=== PATIENT | female | born 1935 | race African-American/Black ===

== ENCOUNTER 2021-02-05 10:01 | Inpatient (IN) | payer OTHER ==
[~2021-02-05] VITALS: Ht 152.4 cm; Wt 56.2 kg
[2021-02-05 11:01] LABS: HEMATOCRIT. 35.8 % (36.0-48.0); HEMOGLOBIN. 11.4 g/dL (12.0-16.0); MEAN CORPUSCULAR HEMOGLOBIN 29.5 pg (28.0-32.0); MEAN CORPUSCULAR VOLUME 92.7 fL (81.0-99.0); MEAN PLATELET VOLUME 8.2 fl (7.4-10.4); PLATELET 160 x1000/uL (130-400); RED BLOOD CELL COUNT 3.86 mill/uL (4.2-5.4); RED CELL DISTRIBUTION WIDTH 15.1 % (11.6-14.6)
[2021-02-05 11:08] LABS: CHLORIDE 100 mEq/L (98-107)
[2021-02-05 11:12] LABS: INR 1.1; PROTHROMBIN TIME 11.3 sec (9.6-11.0)
[2021-02-05 11:57] LABS: PLATELET ESTIMATE NORMAL
[2021-02-05] MEDS ORDERED: ACETAMINOPHEN 325MG TABLET PO PRN (14:15)
[2021-02-05] MEDS ORDERED: ACETAMINOPHEN 650MG SUPP PR PRN (14:15)
[2021-02-05] MEDS ORDERED: MAGNESIUM/ALUMINUM HYDROXIDE/SIMETHICONE 30ML UDC PO PRN (14:15)
[2021-02-05] MEDS ORDERED: GUAIFENESIN 200MG/10ML SUGAR FREE UDC PO PRN (14:15)
[2021-02-05] MEDS ORDERED: LORAZEPAM 0.5MG TABLET PO PRN (14:15)
[2021-02-05] MEDS ORDERED: SODIUM CHLORIDE 0.9% 1,000 ML IV SCH (14:15)
[2021-02-05] MEDS ORDERED: DOCUSATE SODIUM 100MG CAPSULE PO PRN (14:15)
[2021-02-05] MEDS ORDERED: CEFTRIAXONE 1 G PREMIX 50 ML IV SCH (14:15)
[2021-02-05] MEDS ORDERED: DIPHENHYDRAMINE 50MG/ML VIAL IV PRN (14:15)
[2021-02-05] MEDS ORDERED: IPRATROPIUM/ALBUTEROL 0.5-3(2.5)MG/3ML NEB NEB PRN (14:15)
[2021-02-05] MEDS ORDERED: HYDROCODONE/ACETAMINOPHEN 5/325MG TABLET PO PRN (14:15)
[2021-02-05] MEDS ORDERED: NA PHOS,M-B/NA PHOS,DI-BA ENEMA 118ML PR PRN (14:15)
[2021-02-05] MEDS ORDERED: ONDANSETRON HCL 4MG/2ML INJ IV PRN (14:15)
[2021-02-05] MEDS ORDERED: HYDRALAZINE 20MG/ML VIAL IV NR (14:30)
[2021-02-05] MEDS: AMLODIPINE 5MG TABLET PO SCH (14:48)
[2021-02-05 16:31] LABS: LDL CHOLESTEROL 83 mg/dL (5-100)
[2021-02-05 16:32] LABS: HDL CHOLESTEROL 68 mg/dL (40-59)
[2021-02-05 22:07] VITALS: BP 125/71
[2021-02-05 22:09] VITALS: BP 125/71
[2021-02-05] MEDS: FAMOTIDINE 20MG TABLET PO SCH (22:20)
[2021-02-05] MEDS ORDERED: CETI-89 MT (22:42)
[2021-02-05] MEDS ORDERED: LIOT5TAB11 MT (22:42)
[2021-02-05] MEDS ORDERED: FERR325T23 MT (22:42)
[2021-02-05] MEDS ORDERED: LABE300T3 MT (22:42)
[2021-02-05] MEDS ORDERED: ATOR-2 MT (22:42)
[2021-02-05] MEDS ORDERED: ASPI-1497 MT (22:42)
[2021-02-05] MEDS ORDERED: THIA100T72 MT (22:42)
[2021-02-05 23:48] VITALS: BP 166/76
[2021-02-06 00:48] LABS: CREATINE KINASE MB FRACTION 2.3 ng/mL (0.5-3.6)
[2021-02-06] MEDS: CLONIDINE 0.1MG TABLET PO PRN ×2 (00:49→23:59)
[2021-02-06 04:10] VITALS: BP_SYST 131; BP_SYST 135; BP_DIAS 71; BP_DIAS 77
[2021-02-06 06:48] LABS: HEMATOCRIT. 33.5 % (36.0-48.0); HEMOGLOBIN. 10.9 g/dL (12.0-16.0); MEAN CORPUSCULAR HEMOGLOBIN 30.1 pg (28.0-32.0); MEAN CORPUSCULAR VOLUME 92.2 fL (81.0-99.0); MEAN PLATELET VOLUME 8.6 fl (7.4-10.4); PLATELET 151 x1000/uL (130-400); RED BLOOD CELL COUNT 3.63 mill/uL (4.2-5.4); RED CELL DISTRIBUTION WIDTH 15.3 % (11.6-14.6)
[2021-02-06 07:52] LABS: CHLORIDE 100 mEq/L (98-107)
[2021-02-06 08:00] VITALS: BP 124/88
[2021-02-06 08:05] VITALS: BP 137/74
[2021-02-06 08:08] LABS: CREATINE KINASE MB FRACTION 2.1 ng/mL (0.5-3.6); HDL CHOLESTEROL 91 mg/dL (40-59); LDL CHOLESTEROL 60 mg/dL (5-100)
[2021-02-06 08:09] LABS: CREATINE KINASE 173 IU/L (26-192); T4 FREE 1.27 ng/dL (0.76-1.46)
[2021-02-06] MEDS: ASPIRIN 81MG EC TABLET PO SCH (08:58)
[2021-02-06] MEDS: AMLODIPINE 5MG TABLET PO SCH ×2 (08:59→09:00)
[2021-02-06 12:20] VITALS: BP 152/74
[2021-02-06 13:01] LABS: PLATELET ESTIMATE NORMAL
[2021-02-06 16:00] VITALS: BP 156/78
[2021-02-06] MEDS ORDERED: CEFTRIAXONE 1,000 MG in DEXTROSE 5% WATER 50 ML IV SCH (16:00)
[2021-02-06 16:53] LABS: HEPATITIS B SURFACE ANTIGEN NEGATIVE
[2021-02-06 17:23] LABS: HEPATITIS A AB IGM NEGATIVE (NEGATIVE)
[2021-02-06] MEDS ORDERED: AMLO5TAB88 PO (17:46)
[2021-02-06 20:00] VITALS: BP 143/80
[2021-02-06] MEDS: FAMOTIDINE 20MG TABLET PO SCH (21:18)
[2021-02-07] VITALS: BP_SYST 143; BP_SYST 163; BP_SYST 165; BP_DIAS 79; BP_DIAS 85; BP_DIAS 89
[2021-02-07 04:00] VITALS: BP 138/79
[2021-02-07 06:10] LABS: HEMATOCRIT. 32.8 % (36.0-48.0); HEMOGLOBIN. 10.7 g/dL (12.0-16.0); MEAN CORPUSCULAR HEMOGLOBIN 30.4 pg (28.0-32.0); MEAN CORPUSCULAR VOLUME 92.9 fL (81.0-99.0); MEAN PLATELET VOLUME 8.6 fl (7.4-10.4); PLATELET 141 x1000/uL (130-400); RED BLOOD CELL COUNT 3.53 mill/uL (4.2-5.4); RED CELL DISTRIBUTION WIDTH 14.9 % (11.6-14.6)
[2021-02-07 08:00] VITALS: BP 170/85
[2021-02-07] MEDS: ASPIRIN 81MG EC TABLET PO SCH (09:03)
[2021-02-07] MEDS: AMLODIPINE 5MG TABLET PO SCH (09:05)
[2021-02-07 10:38] LABS: NUCLEATED RED BLOOD CELLS 1 /100 WBC; PLATELET ESTIMATE NORMAL
[2021-02-07 10:54] VITALS: BP 133/67
[2021-02-07 11:00] VITALS: BP 133/67
== END 2021-02-07 11:50 | disposition home or self-care (01) | DRG 73 ==
LOC: ER 10:01 → EDBD 10:01 → 6WST 11:32 → SUPCPDRO 14:02 → ENRESERV 20:15
PROVIDERS: ADMIT Internal Medicine; ATTEND Internal Medicine
PROC: 5A1D70Z Performance of Urinary Filtration, Intermittent, Less than 6 Hours Per Day (ICD-10-PCS; principal; 2021-02-06)
DX: G90.8 Other disorders of autonomic nervous system (principal); I50.43 Acute on chronic combined systolic (congestive) and diastolic (congestive) heart failure; N18.6 End stage renal disease; I13.2 Hypertensive heart and chronic kidney disease with heart failure and with stage 5 chronic kidney disease, or end stage renal disease; E87.1 Hypo-osmolality and hyponatremia; N03.9 Chronic nephritic syndrome with unspecified morphologic changes; D64.9 Anemia, unspecified; D72.819 Decreased white blood cell count, unspecified; D72.825 Bandemia; I16.0 Hypertensive urgency; E03.9 Hypothyroidism, unspecified; E11.51 Type 2 diabetes mellitus with diabetic peripheral angiopathy without gangrene; E78.5 Hyperlipidemia, unspecified; M10.9 Gout, unspecified; E11.22 Type 2 diabetes mellitus with diabetic chronic kidney disease; Z88.5 Allergy status to narcotic agent; Z87.891 Personal history of nicotine dependence; Z99.2 Dependence on renal dialysis; Z86.79 Personal history of other diseases of the circulatory system
CPT/HCPCS: 36415; 70551; 71045; 76770; 80048; 80053; 80061; 82550; 82553; 83735; 83880; 84145; 84439; 84443; 84484; 85025; 86705; 86709; 86803; 87340; 93005; 93306; 93880; 93970; 97162; 99291; J0360; J0696; J7060

== ENCOUNTER 2022-03-28 09:50 | Inpatient (IN) | payer OTHER ==
[~2022-03-28] VITALS: Ht 165.1 cm; Wt 58.2 kg
[~2022-03-28 09:50] MED LIST: AMLO5TAB88 PO; ASPI-1497 MT; ATOR-2 MT; CETI-89 MT; FERR325T23 MT; LIOT5TAB11 MT; THIA100T72 MT
[2022-03-28] MEDS ORDERED: ALBUTEROL (0.083%) 2.5MG/3ML NEB HHN STA (09:53)
[2022-03-28] MEDS ORDERED: IPRATROPIUM BROMIDE (0.02%) 0.5MG/2.5ML NEB HHN STA (09:53)
[2022-03-28 10:30] LABS: BASOPHILS % 1.1 % (0.0-2.0); EOSINOPHILS % 2.6 % (0.0-5.0); HEMATOCRIT. 37.6 % (36.0-48.0); HEMOGLOBIN. 12.5 g/dL (12.0-16.0); LYMPHOCYTES % 18.5 % (20.0-50.0); MEAN CORPUSCULAR VOLUME 93.4 fL (81.0-99.0); MEAN PLATELET VOLUME 7.2 fl (7.4-10.4); MONOCYTES % 14.5 % (2.0-8.0); NEUTROPHILS % 63.3 % (40.0-76.0); PLATELET 208 x1000/uL (130-400); RED BLOOD CELL COUNT 4.02 mill/uL (4.2-5.4); RED CELL DISTRIBUTION WIDTH 16.8 % (11.6-14.6)
[2022-03-28 10:44] LABS: CHLORIDE 100 mEq/L (98-107)
[2022-03-28] MEDS ORDERED: FUROSEMIDE 40MG/4ML VIAL IVP ONE (11:30)
[2022-03-28 11:45] LABS: BG BASE EXCESS 1.2 mmol/L (-2.0-2.0); BG DEOXYHEMOGLOBIN 2.2 % (0.0-5.0); BG FRACTION INSPIRED OXYGEN 35; BG HCO3 ACT 26.6 mmol/L (22.0-26.0); BG METHEMOGLOBIN 0.3 % (0.0-1.5); BG OXYGEN SATURATION 97.8 % (92.0-98.5); BG OXYHEMOGLOBIN 97.5 % (94.0-97.0); BG PCO2 45.5 mmHg (35.0-45.0); BG PH 7.385 (7.350-7.450); BG PO2 125.6 mmHg (75.0-100.0); BG SAMPLE SITE RIGHT RADIAL; BG TOTAL HEMOGLOBIN 10.9 g/dL (12.0-18.0); BG TOTAL RESPIRATORY RATE 24 b/min; BG VENT MODE MASK - BIPAP
[2022-03-28] MEDS ORDERED: LEVOFLOXACIN 500MG PREMIX 100 ML IV ONE (11:45)
[2022-03-28 15:57] LABS: CLARITY URINE CLOUDY (CLEAR); COLOR URINE YELLOW (YELLOW); KETONES URINE TRACE (NEGATIVE); LEUKOCYTE ESTERASE URINE NEGATIVE (NEGATIVE); NITRITE URINE NEGATIVE (NEGATIVE); OCCULT BLOOD URINE TRACE (NEGATIVE); PH URINE 7.5 (4.5-8.0); PROTEIN URINE 4+ (NEGATIVE); SPECIFIC GRAVITY URINE 1.022 (1.005-1.030)
[2022-03-28 16:00] VITALS: BP 152/74
[2022-03-28] MEDS ORDERED: AMLODIPINE 5MG TABLET PO SCH (17:45)
[2022-03-28] MEDS ORDERED: ONDANSETRON HCL 4MG/2ML INJ IV PRN (17:45)
[2022-03-28] MEDS ORDERED: ACETAMINOPHEN 325MG TABLET PO PRN (17:45)
[2022-03-28] MEDS ORDERED: IPRATROPIUM/ALBUTEROL 0.5-3(2.5)MG/3ML NEB HHN PRN (17:45)
[2022-03-28 18:03] VITALS: BP 152/74
[2022-03-28 20:00] VITALS: BP 156/70
[2022-03-28] MEDS: ENOXAPARIN 30MG/0.3ML SYR SUBCUT SCH (21:52)
[2022-03-29] VITALS: BP 152/94
[2022-03-29 04:00] VITALS: BP 142/76
[2022-03-29] MEDS: LIOTHYRONINE SODIUM 5MCG TABLET PO SCH (06:34)
[2022-03-29 06:51] LABS: HEMATOCRIT. 27.3 % (36.0-48.0); HEMOGLOBIN. 9.2 g/dL (12.0-16.0); MEAN CORPUSCULAR HEMOGLOBIN 31.6 pg (28.0-32.0); MEAN CORPUSCULAR VOLUME 93.6 fL (81.0-99.0); MEAN PLATELET VOLUME 7.3 fl (7.4-10.4); PLATELET 153 x1000/uL (130-400); RED BLOOD CELL COUNT 2.91 mill/uL (4.2-5.4)
[2022-03-29] MEDS: CALCIUM ACETATE 667MG CAPSULE PO SCH ×3 (07:50→17:50)
[2022-03-29 08:00] VITALS: BP 123/75
[2022-03-29 08:00] LABS: PHOSPHORUS 4.4 mg/dL (2.5-4.9)
[2022-03-29] MEDS: CETIRIZINE 10MG TABLET PO SCH (09:00)
[2022-03-29] MEDS: THIAMINE HCL 100MG TABLET PO SCH (09:00)
[2022-03-29] MEDS: METOPROLOL TARTRATE 25MG TABLET PO SCH ×2 (09:00→21:42)
[2022-03-29] MEDS: FOLIC ACID/VITAMIN B COMP W-C TABLET PO SCH (09:00)
[2022-03-29] MEDS: FERROUS SULFATE 325MG TABLET PO SCH (09:00)
[2022-03-29] MEDS: LOSARTAN POTASSIUM 100 MG TABLET PO SCH (09:00)
[2022-03-29] MEDS: AMLODIPINE 5MG TABLET PO SCH ×2 (09:00→21:41)
[2022-03-29] MEDS: ASPIRIN 81MG EC TABLET PO SCH (09:00)
[2022-03-29 12:00] VITALS: BP 179/81
[2022-03-29 13:43] LABS: BG CARBOXYHEMOGLOBIN 0.8 % (0.5-1.5); BG DEOXYHEMOGLOBIN 16.9 % (0.0-5.0); BG FRACTION INSPIRED OXYGEN 21; BG HCO3 ACT 27.2 mmol/L (22.0-26.0); BG METHEMOGLOBIN 0.3 % (0.0-1.5); BG OXYGEN SATURATION 82.9 % (92.0-98.5); BG PCO2 45.3 mmHg (35.0-45.0); BG PH 7.396 (7.350-7.450); BG PO2 47.1 mmHg (75.0-100.0); BG SAMPLE SITE RIGHT BRACHIAL; BG TOTAL HEMOGLOBIN 10.5 g/dL (12.0-18.0); BG VENT MODE ROOM AIR
[2022-03-29 16:00] VITALS: BP 154/82
[2022-03-29] MEDS ORDERED: VANCOMYCIN 1G PREMIX 200 ML IV SCH (17:00)
[2022-03-29 17:03] LABS: HEPATITIS B SURFACE ANTIGEN NEGATIVE
[2022-03-29 19:31] LABS: PLATELET ESTIMATE NORMAL
[2022-03-29 20:00] VITALS: BP 187/94
[2022-03-29] MEDS ORDERED: ATORVASTATIN CALCIUM 40MG TABLET PO SCH (21:00)
[2022-03-29] MEDS: ENOXAPARIN 30MG/0.3ML SYR SUBCUT SCH (21:40)
[2022-03-29] MEDS ORDERED: VANCOMYCIN 1.25GM PMX (XELLIA) 250 ML IV NR (22:00)
[2022-03-30] VITALS: BP 155/52
[2022-03-30 04:00] VITALS: BP 149/71
[2022-03-30] MEDS: LIOTHYRONINE SODIUM 5MCG TABLET PO SCH (06:33)
[2022-03-30 08:00] VITALS: BP 169/82
[2022-03-30] MEDS ORDERED: CALCITRIOL 0.25MCG CAPSULE PO SCH (09:00)
[2022-03-30] MEDS ORDERED: LEVOFLOXACIN 500MG PREMIX 100 ML IV SCH (09:00)
[2022-03-30] MEDS: CETIRIZINE 10MG TABLET PO SCH (09:22)
[2022-03-30] MEDS: CALCIUM ACETATE 667MG CAPSULE PO SCH ×3 (09:22→17:39)
[2022-03-30] MEDS: FOLIC ACID/VITAMIN B COMP W-C TABLET PO SCH (09:22)
[2022-03-30] MEDS: ASPIRIN 81MG EC TABLET PO SCH (09:23)
[2022-03-30] MEDS: FERROUS SULFATE 325MG TABLET PO SCH (09:23)
[2022-03-30] MEDS: THIAMINE HCL 100MG TABLET PO SCH (09:23)
[2022-03-30] MEDS: LOSARTAN POTASSIUM 100 MG TABLET PO SCH (09:24)
[2022-03-30] MEDS: METOPROLOL TARTRATE 25MG TABLET PO SCH (09:24)
[2022-03-30] MEDS: AMLODIPINE 5MG TABLET PO SCH (09:24)
[2022-03-30 12:00] VITALS: BP 184/90
[2022-03-30] MEDS ORDERED: METO25TA6 PO (15:14)
[2022-03-30] MEDS ORDERED: LEVO250T43 MT (15:14)
[2022-03-30 16:00] VITALS: BP 165/64
[2022-03-30 17:54] VITALS: BP 150/64
== END 2022-03-30 18:15 | disposition home or self-care (01) | DRG 189 ==
LOC: ER 09:50 → 6WST 11:33 → ENRESERV 12:33 → CANRESERV 12:33 → EDBEDREQSVC 13:15 → ENRESERV 14:55
PROVIDERS: ADMIT Internal Medicine; ATTEND Internal Medicine
PROC: 5A09357 Assistance with Respiratory Ventilation, Less than 24 Consecutive Hours, Continuous Positive Airway Pressure (ICD-10-PCS; principal; 2022-03-28)
PROC: 5A1D70Z Performance of Urinary Filtration, Intermittent, Less than 6 Hours Per Day (ICD-10-PCS; 2022-03-29)
DX: J96.01 Acute respiratory failure with hypoxia (principal); I50.31 Acute diastolic (congestive) heart failure; N18.6 End stage renal disease; I13.2 Hypertensive heart and chronic kidney disease with heart failure and with stage 5 chronic kidney disease, or end stage renal disease; N03.9 Chronic nephritic syndrome with unspecified morphologic changes; J44.1 Chronic obstructive pulmonary disease with (acute) exacerbation; J44.0 Chronic obstructive pulmonary disease with (acute) lower respiratory infection; Z20.822 Contact with and (suspected) exposure to COVID-19; E78.5 Hyperlipidemia, unspecified; E03.9 Hypothyroidism, unspecified; E11.22 Type 2 diabetes mellitus with diabetic chronic kidney disease; E11.51 Type 2 diabetes mellitus with diabetic peripheral angiopathy without gangrene; Z99.2 Dependence on renal dialysis; Z88.6 Allergy status to analgesic agent; Z88.8 Allergy status to other drugs, medicaments and biological substances; Z79.82 Long term (current) use of aspirin; Z79.899 Other long term (current) drug therapy; M10.9 Gout, unspecified
CPT/HCPCS: 36415; 36600; 71045; 80048; 80053; 81003; 82375; 82553; 82805; 83605; 83735; 84100; 84145; 84484; 85025; 86705; 86709; 86803; 87340; 87426; 93005; 94644; 94660; 97161; 97162; 99291; J1650; J1956; J3370